=== PATIENT | male | born 1965 | race Caucasian/White ===

== ENCOUNTER → 2018-03-12 07:59 | Outpatient (CLI) | payer BC | END | disposition home or self-care (01) | LOC: D.US 07:59 | DX: R10.11 Right upper quadrant pain (principal); R14.0 Abdominal distension (gaseous) ==

== ENCOUNTER → 2020-06-12 12:30 | Outpatient (CLI) | payer BC | END | disposition home or self-care (01) | LOC: D.MRI 12:30 | PROVIDERS: ATTEND Family Medicine | DX: M50.01 Cervical disc disorder with myelopathy, high cervical region (principal) ==